=== PATIENT | male | born 1950 | race Caucasian/White ===

== ENCOUNTER 2020-07-25 20:36 | Emergency (ER) | payer BC, OTHER ==
[~2020-07-25] VITALS: Ht 177 cm; Wt 85.0 kg
--- NOTE | 2020-07-25 21:06 | ED Upper Extremity ---
General Chief Complaint: Upper Extremity Stated Complaint: L SHOULDER BLADE PAIN/L ARM AND HAND WEAKNESS/PAIN Nursing Triage Note: Pt here with left arm/shoulder pain. Onset Sunday night. Nursing Sepsis Screen: No Definite Risk History of Present Illness Date Seen by Provider: Jul 25, 2020 Time Seen by Provider: 21:00 Initial Comments This is a well-appearing 70-year-old male resents to the ER with complaints of left-sided neck and shoulder pain that began on Sunday. States he feels like he slept wrong and now has been having a pulling sensation in his neck and shoulder. Will have intermittent episodes of numbness in his left index finger. Has not taken anything for pain. Currently reports pain 0 out of 10 with rest. Denies fevers, weakness, vertigo, changes in vision, chills, cough, shortness of breath, nausea, vomiting, abdominal pain, no contacts or COVID exposures. Allergies and Home Medications Allergies Coded Allergies: No Known Drug Allergies (Unverified , 07/25/20) Home Medications Cyclobenzaprine HCl 10 Mg Tablet, 10 MG PO TID PRN for PAIN-SEVERE (8-10) Prescribed by: ALIE QUIÑONES on 07/25/20 4243 Patient Home Medication List Home Medication List Reviewed: Yes Review of Systems Constitutional: no symptoms reported EENTM: see HPI Respiratory: no symptoms reported Cardiovascular: no symptoms reported Gastrointestinal: no symptoms reported Genitourinary: no symptoms reported Musculoskeletal: see HPI Skin: no symptoms reported Psychiatric/Neurological: No Symptoms Reported Past Aqfzlxa-Yocrdi-Kryqhl Hx Patient Social History Alcohol Use: Denies Use Recreational Drug Use: No Smoking Status: Former Smoker Type Used: Cigarettes Recent Foreign Travel: No Contact w/Someone Who Travel: No Recent Infectious Disease Expo: No Physical Exam Vital Signs Vital Signs - First Documented 07/25/20 20:47 Temp 36.5 Pulse 87 Resp 18 B/P (MAP) 184/100 (128) Pulse Ox 97 O2 Delivery Room Air Capillary Refill : Less Than 3 Seconds Height, Weight, BMI Height: '" Weight: lbs. oz. kg; 27.00 BMI Method: General Appearance: WD/WN, no apparent distress Progress/Results/Core Measures Results/Orders Lab Results Laboratory Tests Test 07/25/20 20:48 Range/Units White Blood Count 6.4 4.3-11.0 10^3/uL Red Blood Count 4.88 4.30-5.52 10^6/uL Hemoglobin 15.4 13.3-17.7 g/dL Hematocrit 45 40-54 % Mean Corpuscular Volume 92 80-99 fL Mean Corpuscular Hemoglobin 32 25-34 pg Mean Corpuscular Hemoglobin Concent 34 32-36 g/dL Red Cell Distribution Width 12.7 10.0-14.5 % Platelet Count 235 130-400 10^3/uL Mean Platelet Volume 10.6 9.0-12.2 fL Immature Granulocyte % (Auto) 0 % Neutrophils (%) (Auto) 64 42-75 % Lymphocytes (%) (Auto) 26 12-44 % Monocytes (%) (Auto) 8 0-12 % Eosinophils (%) (Auto) 2 0-10 % Basophils (%) (Auto) 0 0-10 % Neutrophils # (Auto) 4.1 1.8-7.8 10^3/uL Lymphocytes # (Auto) 1.7 1.0-4.0 10^3/uL Monocytes # (Auto) 0.5 0.0-1.0 10^3/uL Eosinophils # (Auto) 0.1 0.0-0.3 10^3/uL Basophils # (Auto) 0.0 0.0-0.1 10^3/uL Immature Granulocyte # (Auto) 0.0 0.0-0.1 10^3/uL Sodium Level 140 135-145 MMOL/L Potassium Level 3.7 3.6-5.0 MMOL/L Chloride Level 106 98-107 MMOL/L Carbon Dioxide Level 21 21-32 MMOL/L Anion Gap 13 5-14 MMOL/L Blood Urea Nitrogen 23 H 7-18 MG/DL Creatinine 0.95 0.60-1.30 MG/DL Estimat Glomerular Filtration Rate > 60 BUN/Creatinine Ratio 24 Glucose Level 109 H 70-105 MG/DL Calcium Level 9.1 8.5-10.1 MG/DL Corrected Calcium 9.1 8.5-10.1 MG/DL Magnesium Level 1.9 1.6-2.4 MG/DL Total Bilirubin 0.4 0.1-1.0 MG/DL Aspartate Amino Transf (AST/SGOT) 26 5-34 U/L Alanine Aminotransferase (ALT/SGPT) 25 0-55 U/L Alkaline Phosphatase 64 40-136 U/L Troponin I < 0.028 <0.028 NG/ML Total Protein 7.0 6.4-8.2 GM/DL Albumin 4.0 3.2-4.5 GM/DL My Orders Orders - ALIE QUIÑONES LITIGATION COORDINATOR Cbc With Automated Diff (07/25/20 21:02) Magnesium (07/25/20 21:02) Chest 1 View, Ap/Pa Only (07/25/20:) Ekg Tracing (07/25/20:) Comprehensive Metabolic Panel (07/25/20 21:) Troponin I (07/25/20:) Cervical Spine 3 Views Or Less (07/25/20 21:09) Ketorolac Injection (Toradol Injection) (07/25/20 22:00) Orphenadrine Inj (Ed Only) (Norflex Inje (07/25/20 22:00) Medications Given in ED Current Medications Medications Dose Ordered Sig/Amanda Route Start Time Stop Time Status Last Admin Dose Admin Ketorolac Tromethamine 15 mg ONCE ONCE IVP 07/25/20 22:00 07/25/20 22:01 DC 07/25/20 22:25 15 MG Orphenadrine Citrate 60 mg ONCE ONCE IM 07/25/20 22:00 07/25/20 22:01 DC 07/25/20 22:29 60 MG Vital Signs/I&O 07/25/20 07/25/20 20:47 22:55 Temp 36.5 36.5 Pulse 87 87 Resp 18 18 B/P (MAP) 184/100 (128) 132/77 (128) Pulse Ox 97 97 O2 Delivery Room Air Blood Pressure Mean: 128 Progress Progress Note : Progress Note Based on the history of his pain and numbness, this is likely due to pinched nerve. However, he does have a history of hyperlipidemia and hypertension. Initiated chest pain protocol to rule out cardiac etiology. Images of C-spine obtained to assess for cervical radiculopathy. Labs, EKG, one view chest, and cardiac markers were all unremarkable. Images obtained of C-spine appear to have degenerative changes with no acute fractures appreciated, pending radiology review. Review discharge plan with him and he is agreeable with plan. Initial ECG Impression Date: Jul 25, 2020 Initial ECG Impression Time: 20:41 Initial ECG Rate: 88 Initial ECG Rhythm: Normal Sinus Diagnostic Imaging Diagonstic Imaging: Xray Plain Films/CT/US/NM/MRI: chest Comments NAME: SHANTEL SALAMANCA [facility] REC#: [id number] PT STATUS: REG ER : 1950 PHYSICIAN: ALIE QUIÑONES APRN ADMIT DATE: 07/25/20/ER Draft Date of Exam:07/25/20 CHEST 1 VIEW, AP/PA ONLY INDICATION: Chest pain. TECHNIQUE: Single view chest, 9:18 p.m. CORRELATION STUDY: None. FINDINGS: The heart size, mediastinal configuration and pulmonary vascularity are within normal limits. Lungs george are somewhat hyperinflated but overall relatively clear. No consolidating infiltrate. IMPRESSION: Negative for acute abnormality of the chest. Dictated on workstation # [id number] Dict: 07/25/202137 Trans: 07/25/202140 [facility] [id number] Interpreted by: INGRIS MARTINES DO Electronically signed by: Diagonstic Imaging: Xray Plain Films/CT/US/NM/MRI: c-spine Comments Degenerative changes noted in C-spine with no acute fractures appreciated, pending radiology review. Reviewed: Reviewed by Me Departure Impression Primary Impression: Cervical radicular pain Disposition: HOME, SELF-CARE Condition: Improved Departure-Patient Inst. Referrals: RADHA MORRIS MD (PCP/Family) Primary Care Physician Patient Instructions: Back Muscle Strain (DC), Neck Stretches Add. Discharge Instructions: Plan: 1. Discharge home. 2. May take Tylenol or Ibuprofen as needed for pain per package instructions. 3. Use ice 20minutes at a time followed by heat 20 minutes at a time. 4. May use Flexeril 10mg by mouth three times a day as needed for pain. 5. Follow up with your doctor regarding your blood pressure. 6. Return to ER for any new or concerning symptoms. All discharge instructions reviewed with patient and/or family. Voiced understanding. Scripts Cyclobenzaprine HCl (Cyclobenzaprine HCl) 10 Mg Tablet 10 MG PO TID PRN for PAIN-SEVERE (8-10) for 5 Days, #15 TAB 0 Refills Prov: ALIE QUIÑONES APRN 07/25/20 ALIE QUIÑONES APRN Jul 25, 2020 21:06
[2020-07-25 21:07] LABS: BASOPHILS % (AUTO) 0 % (0-10); EOSINOPHILS # (AUTO) 0.1 10^3/uL (0.0-0.3); EOSINOPHILS % (AUTO) 2 % (0-10); HEMATOCRIT 45 % (40-54); HEMOGLOBIN 15.4 g/dL (13.3-17.7); LYMPHOCYTES # (AUTO) 1.7 10^3/uL (1.0-4.0); LYMPHOCYTES % (AUTO) 26 % (12-44); MEAN CORPUSCULAR HEMOGLOBIN 32 pg (25-34); MEAN CORPUSCULAR HGB CONC 34 g/dL (32-36); MEAN CORPUSCULAR VOLUME 92 fL (80-99); MEAN PLATELET VOLUME 10.6 fL (9.0-12.2); MONOCYTES # (AUTO) 0.5 10^3/uL (0.0-1.0); MONOCYTES % (AUTO) 8 % (0-12); NEUTROPHILS # (AUTO) 4.1 10^3/uL (1.8-7.8); NEUTROPHILS % (AUTO) 64 % (42-75); PLATELET COUNT 235 10^3/uL (130-400); WHITE BLOOD COUNT 6.4 10^3/uL (4.3-11.0)
--- NOTE | 2020-07-25 21:11 | NUR ---
Pt here with left arm/shoulder pain. Onset Sunday night. Pt denies cp. Pt has no obvious neuro deficits on exam. 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 Pt c/o numbness to his left index finger and numbness to the posterior aspect of his upper arm. Pt states he can reproduce his arm pain by moving his arm around. When obtaining his ECG pain is worsened when asked to place his head on the pillow.
[2020-07-25 21:13] LABS: CHLORIDE 106 MMOL/L (98-107); POTASSIUM 3.7 MMOL/L (3.6-5.0); SODIUM 140 MMOL/L (135-145)
[2020-07-25 21:14] LABS: CALCIUM 9.1 MG/DL (8.5-10.1)
--- NOTE | 2020-07-25 21:14 | NUR ---
Pt to x-ray by w/c.
[2020-07-25 21:15] LABS: GLUCOSE 109 MG/DL (70-105)
[2020-07-25 21:17] LABS: BILIRUBIN,TOTAL 0.4 MG/DL (0.1-1.0); CARBON DIOXIDE 21 MMOL/L (21-32)
[2020-07-25 21:19] LABS: ALKALINE PHOSPHATASE 64 U/L (40-136); CREATININE SERUM 0.95 MG/DL (0.60-1.30); GFR ESTIMATED > 60
[2020-07-25 21:20] LABS: BUN/CREATININE RATIO 24
[2020-07-25 21:22] LABS: ALANINE AMINOTRANSFERASE 25 U/L (0-55); MAGNESIUM 1.9 MG/DL (1.6-2.4)
--- NOTE | 2020-07-25 21:42 | Diagnostic Imaging Report ---
INDICATION: Chest pain. TECHNIQUE: Single view chest, 9:18 p.m. CORRELATION STUDY: None. FINDINGS: The heart size, mediastinal configuration and pulmonary vascularity are within normal limits. Lungs george are somewhat hyperinflated but overall relatively clear. No consolidating infiltrate. IMPRESSION: Negative for acute abnormality of the chest. Dictated by: Dictated on workstation # [id number]
[2020-07-25] MEDS ORDERED: ORPHENADRINE 60 MG/2 ML (NORFLEX) AMP (ED ONLY) IM ONE (22:00)
[2020-07-25] MEDS ORDERED: KETOROLAC 30 MG/ML VIAL IVP ONE (22:00)
[2020-07-25] MEDS ORDERED: CYCL10TA9 PO (22:34)
[2020-07-25 22:55] VITALS: BP 132/77
--- NOTE | 2020-07-26 07:17 | Diagnostic Imaging Report ---
INDICATION: Neck pain and left upper extremity paresthesia. AP, lateral and swimmer's views of cervical spine are obtained. FINDINGS: Cervical vertebral body heights are maintained. There is narrowing of the C5-C6 disc space with endplate spurring. There is also a persistent lucency through the inferior endplate of C5 on lateral and swimmer's views. This is not confirmed on the AP image, however consideration could be given to cross-sectional imaging for further assessment. Prevertebral soft tissues are unremarkable. Carotid artery atherosclerotic calcification is noted. IMPRESSION: Localized C5-C6 degenerative disc disease with linear lucency through the inferior endplate of C5. While this could be artifactual, consideration should be given to CT imaging for further assessment. Dictated by: Dictated on workstation # [id number]
== END 2020-07-25 22:56 | disposition home or self-care (01) ==
LOC: EDUNIT# 20:36 → ER 20:38
DX: M54.12 Radiculopathy, cervical region (principal); Z87.891 Personal history of nicotine dependence
CPT/HCPCS: 36415; 71045; 72040; 80053; 83735; 84484; 85025